=== PATIENT | female | born 1955 | race Caucasian/White ===

== ENCOUNTER 2024-02-27 23:55 | Emergency (ER) | payer OTHER ==
[~2024-02-27] VITALS: Ht 157.5 cm; Wt 93.4 kg
[2024-02-28 00:07] VITALS: BP 138/85; PULSE 96; RESP 16; TEMP 98.5; O2SAT 99
[2024-02-28 01:07] LABS: BASOPHILS % (AUTO) 0.6 % (0.0-2.0); EOSINOPHILS % (AUTO) 1.1 % (0.0-4.0); HEMOGLOBIN 14.7 g/dL (12.0-16.0); LYMPHOCYTES # (AUTO) 0.6 K/uL (2.5-16.5); LYMPHOCYTES % (AUTO) 18.5 % (20.5-51.1); MEAN CORPUSCULAR HEMOGLOBIN 30 pg (27-31); MEAN CORPUSCULAR HGB CONC 34 g/dL (33-37); MONOCYTES # (AUTO) 0.6 K/uL (0.8-1.0); MONOCYTES % (AUTO) 18.9 % (1.7-9.3); NEUTROPHILS # (AUTO) 2.1 K/uL (1.8-7.7); NEUTROPHILS % (AUTO) 60.9 % (42.2-75.2); PLATELET COUNT (AUTO) 149 K/uL (140-450); RED BLOOD CELL COUNT(AUTO) 4.83 MIL/uL (4.20-5.40); RED CELL DISTRIBUTION WIDTH 14.3 % (11.6-13.7); WHITE BLOOD COUNT (AUTO) 3.4 K/uL (4.8-10.8)
[2024-02-28 01:10] VITALS: BP 138/85; PULSE 96; RESP 16; TEMP 98.5; O2SAT 99
[2024-02-28 01:17] LABS: MAGNESIUM 1.7 mg/dL (1.8-2.4); PHOSPHORUS 3.7 mg/dL (2.5-4.9)
[2024-02-28 01:18] LABS: ANION GAP 12.1 (8-16); CALCIUM 9.1 mg/dL (8.5-10.1); CARBON DIOXIDE 28.2 mmol/L (21-32); CREATININE 0.9 mg/dL (0.6-1.3); POTASSIUM 4.3 mmol/L (3.5-5.1)
[2024-02-28] MEDS ORDERED: KETOROLAC 30 MG/ML VIAL ONE (02:01)
[2024-02-28] MEDS: KETOROLAC 30 MG/ML VIAL IM ONE (02:04)
[2024-02-28] MEDS: MAGNESIUM CHLORIDE 64 MG TABEC PO ONE (02:05)
== END 2024-02-28 02:04 | disposition home or self-care (01) ==
LOC: MED 23:55
DX: E83.42 Hypomagnesemia (principal); E11.9 Type 2 diabetes mellitus without complications; R05.9 Cough, unspecified; R03.0 Elevated blood-pressure reading, without diagnosis of hypertension
CPT/HCPCS: 36415; 71045; 80048; 82550; 83735; 84100; 85025; 96372; 99284; J1885